=== PATIENT | female | born 1965 ===

== ENCOUNTER 2024-04-30 06:40 | Day surgery (SDC) | payer OTHER ==
[2024-04-16 13:54] VITALS: BP 140/82
[~2024-04-30] VITALS: Ht 157.5 cm; Wt 70.3 kg
[2024-04-30] MEDS ORDERED: DEXAMETHASONE SODIUM PHOSPHATE 4 MG/ML VIAL ONE (11:04)
[2024-04-30] MEDS ORDERED: MORPHINE SULFATE 4 MG/ML VIAL IV ONE (15:45)
== END 2024-04-30 17:35 | disposition home or self-care (01) ==
LOC: CIR.AMB 06:40 → U 06:40 → CIR.AMB 17:35
PROVIDERS: ATTEND Surgery
DX: D34 Benign neoplasm of thyroid gland (principal); E21.0 Primary hyperparathyroidism; Z88.6 Allergy status to analgesic agent